=== PATIENT | female | born 1990 | race Caucasian/White ===

== ENCOUNTER 2016-12-18 19:29 | Emergency (ER) | payer OTHER ==
[~2016-12-18] VITALS: Ht 152.4 cm; Wt 74.8 kg
[2016-12-18] MEDS ORDERED: fentaNYL PF 100 MCG/2 ML VIAL IV PRN (20:30)
[2016-12-18] MEDS ORDERED: CONTRAST GIVEN MC PRN (21:00)
[2016-12-18] MEDS ORDERED: IOHEXOL 300 MG/ML 75 ML VIAL. IV ONE (21:00)
[2016-12-18 21:23] LABS: BILIRUBIN,URINE NEG (NEG); CLARITY,URINE CLEAR; COLOR,URINE YELLOW; GLUCOSE,URINE NEG (NEG); NITRITE,URINE NEG (NEG); UROBILINOGEN,URINE 0.2 mg/dL (0.2 mg/dL)
[2016-12-18 21:24] LABS: BACTERIA,URINE FEW /HPF (0-FEW); SQUAMOUS EPITHELIAL CELL,UR FEW /LPF
--- NOTE | 2016-12-18 21:51 | RAD ---
Exam is an: CT abdomen pelvis with IV contrast HISTORY: History of postop infection, similar to comparison: None available TECHNIQUE: Axial CT images of the abdomen pelvis were performed with IV contrast. Coronal and sagittal reformats are performed . Exposure: One or more of the following individualized dose reduction techniques were utilized for this examination: 1. Automated exposure control 2. Adjustment of the mA and/or kV according to patient size 3. Use of iterative reconstruction technique FINDINGS: The visualized bibasilar lungs grossly appears unremarkable. No evidence of free air identified in the abdomen. The visualized liver, spleen, adrenals grossly appears unremarkable. The gallbladder is mildly distended. Stomach is mildly distended. The visualized pancreas grossly appears unremarkable. The small bowel is nondilated. The appendix is not clearly identified however no evidence of inflammatory fat stranding identified in the right lower quadrant abdomen about the cecum. Feces and gas noted identified in the colon. The descending colon, sigmoid colon collapsed. Urinary bladder is mildly distended. Enlarged appearing thyroid uterus. There is fluid identified in the endometrium. There is faint heterogeneous enhancement of the uterus particularly in the posterior aspect. Small amount of free fluid identified in the pelvis. An obvious drainable focal fluid collection is not identified. The bilateral kidneys enhance symmetrically. The caliber of the aorta grossly appears unremarkable. No evidence of lytic bony destructive lesion. IMPRESSION: 1. Enlarged uterus could be status with mild inflammatory fat stranding around the uterus with some heterogeneous enhancement of the uterus could be postoperative changes or infection. There is fluid identified in the endometrium, nonspecific. Endometritis is not completely excluded. Correlate clinically. Electronically signed by: Ha Gill MD (12/18/2016 9:48 PM) [facility]
[2016-12-18 22:02] LABS: BASO # 0.1 x10^3/uL (0.0-0.2); BASO % 1 % (0-3); EOS # 0.1 x10^3/uL (0.0-0.7); EOS % 2 % (0-3); HEMATOCRIT 35.3 % (36.0-47.0); HEMOGLOBIN 11.9 g/dL (12.0-15.5); LYMPH # 3.4 x10^3/uL (1.0-4.8); LYMPH % 40 % (24-48); MEAN CORPUSCULAR HEMOGLOBIN 29 pg (25-35); MEAN CORPUSCULAR HGB CONC 34 g/dL (31-37); MEAN CORPUSCULAR VOLUME 87 fL (79-100); MONO # 0.5 x10^3/uL (0.0-1.1); MONO % 6 % (0-9); NEUT # 4.5 x10^3uL (1.8-7.7); NEUT % 52 % (31-73); PLATELET COUNT 244 x10^3/uL (140-400); RED BLOOD COUNT 4.06 x10^6/uL (3.50-5.40); RED CELL DISTRIBUTION WIDTH 14.3 % (11.5-14.5); WHITE BLOOD COUNT 8.6 x10^3/uL (4.0-11.0)
[2016-12-18 22:13] LABS: ALBUMIN 2.7 g/dL (3.4-5.0); ALBUMIN/GLOBULIN RATIO 0.8 (1.0-1.7); CALCIUM 8.3 mg/dL (8.5-10.1); CREATININE 0.8 mg/dL (0.6-1.0); GFR 86.7; TOTAL BILIRUBIN 0.2 mg/dL (0.2-1.0); TOTAL PROTEIN 5.9 g/dL (6.4-8.2)
[2016-12-18 23:31] VITALS: BP 130/55
--- NOTE | 2016-12-18 23:34 | PHYS DOC ---
Adult General Chief Complaint Chief Complaint: POST-OP PROBLEM HPI HPI Patient is a 26 year old female who presents with post operative infection. The patient states she is s/p by Dr. Albright at [facility] on 12/05. Yesterday she developed mild erythema around her incision. She was seen by her OB in the clinic yesterday & given prescription for keflex. She has taken 1 dose. Today she reports increased abdominal pain with spreading redness & warmth around the incision. She denies fevers/chills, nausea/vomiting, diarrhea, dysuria/hematuria, vaginal discharge. Occasional vaginal spotting. Review of Systems Review of Systems Constitutional: Denies fever or chills HENT: Denies nasal congestion or sore throat Respiratory: Denies cough or shortness of breath Cardiovascular: Denies chest pain GI: Reports abdominal pain, denies nausea, vomiting, bloody stools or diarrhea : Denies dysuria or hematuria Musculoskeletal: Denies back pain or joint pain Integument: Reports erythema around skin incision. Neurologic: Denies headache Current Medications Current Medications Current Medications Medications (Trade) Dose Ordered Sig/Yelitza Start Time Stop Time Status Last Admin Dose Admin Fentanyl Citrate (Fentanyl 2ml Vial) 50 mcg PRN Q15MIN PRN 12/18/16 20:30 12/19/16 20:29 Info (Do NOT chart on this entry -- for MONITORING) 1 each PRN DAILY PRN 12/18/16 21:00 12/20/16 20:59 Iohexol (Omnipaque 300 Mg/ml) 75 ml 1X ONCE 12/18/16 21:00 12/18/16 21:01 DC 12/18/16 21:15 75 ML Allergies Allergies Allergies Coded Allergies Type Severity Reaction Last Updated Verified No Known Drug Allergies 12/18/16 No Physical Exam Physical Exam Constitutional: Well developed, well nourished, no acute distress, non-toxic appearance. HENT: Normocephalic, atraumatic, bilateral external ears normal, oropharynx moist, nose normal. Eyes: conjunctiva normal, no discharge. Neck: supple, no stridor. Cardiovascular: RRR, no murmurs, no edema. Lungs & Thorax: LCTAB, no wheezing, no respiratory distress. Abdomen: low abdominal incision is intact, surrounding erythema & warmth approx 3 cm radius surrounding the incision with small amount of clear drainage, soft, moderate lower abdominal tenderness over the incision, no rebound/guarding, no masses or pulsatile masses, nondistended. Skin: Warm, dry, no erythema, no rash. Back: No CVA tenderness. Extremities: No tenderness, no edema. Neurologic: Alert and oriented X 3, no focal deficits noted. Psychologic: Affect normal, judgement normal, mood normal. Current Patient Data Lab Results Laboratory Tests Test 12/18/16 19:57 12/18/16 21:34 Urine Collection Type Unknown Urine Color Yellow Urine Clarity Clear Urine pH 7.0 Urine Specific [place] 1.025 Urine Protein Neg (NEG-TRACE) Urine Glucose (UA) Neg mg/dL (NEG) Urine Ketones (Stick) Neg mg/dL (NEG) Urine Blood Mod (NEG) Urine Nitrite Neg (NEG) Urine Bilirubin Neg (NEG) Urine Urobilinogen Dipstick 0.2 mg/dL (0.2 mg/dL) Urine Leukocyte Esterase Neg (NEG) Urine RBC 3-5 /HPF (0-2) Urine WBC 1-4 /HPF (0-4) Urine Squamous Epithelial Cells Few /LPF Urine Bacteria Few /HPF (0-FEW) Urine Mucus Mod /LPF White Blood Count 8.6 x10^3/uL (4.0-11.0) Red Blood Count 4.06 x10^6/uL (3.50-5.40) Hemoglobin 11.9 g/dL (12.0-15.5) L Hematocrit 35.3 % (36.0-47.0) L Mean Corpuscular Volume 87 fL (79-100) Mean Corpuscular Hemoglobin 29 pg (25-35) Mean Corpuscular Hemoglobin Concent 34 g/dL (31-37) Red Cell Distribution Width 14.3 % (11.5-14.5) Platelet Count 244 x10^3/uL (140-400) Neutrophils (%) (Auto) 52 % (31-73) Lymphocytes (%) (Auto) 40 % (24-48) Monocytes (%) (Auto) 6 % (0-9) Eosinophils (%) (Auto) 2 % (0-3) Basophils (%) (Auto) 1 % (0-3) Neutrophils # (Auto) 4.5 x10^3uL (1.8-7.7) Lymphocytes # (Auto) 3.4 x10^3/uL (1.0-4.8) Monocytes # (Auto) 0.5 x10^3/uL (0.0-1.1) Eosinophils # (Auto) 0.1 x10^3/uL (0.0-0.7) Basophils # (Auto) 0.1 x10^3/uL (0.0-0.2) Sodium Level 140 mmol/L (136-145) Potassium Level 4.0 mmol/L (3.5-5.1) Chloride Level 107 mmol/L (98-107) Carbon Dioxide Level 24 mmol/L (21-32) Anion Gap 9 (6-14) Blood Urea Nitrogen 15 mg/dL (7-20) Creatinine 0.8 mg/dL (0.6-1.0) Estimated GFR (Cockcroft-Gault) 86.7 BUN/Creatinine Ratio 19 (6-20) Glucose Level 83 mg/dL (70-99) Calcium Level 8.3 mg/dL (8.5-10.1) L Total Bilirubin 0.2 mg/dL (0.2-1.0) Aspartate Amino Transferase (AST) 15 U/L (15-37) Alanine Aminotransferase (ALT) 29 U/L (14-59) Alkaline Phosphatase 137 U/L (46-116) H Total Protein 5.9 g/dL (6.4-8.2) L Albumin 2.7 g/dL (3.4-5.0) L Albumin/Globulin Ratio 0.8 (1.0-1.7) L EKG EKG [] Radiology/Procedures Radiology/Procedures PROCEDURE: CT ABD PELV W/ IV CONTRST ONLY Exam is an: CT abdomen pelvis with IV contrast HISTORY: History of postop infection, similar to comparison: None available TECHNIQUE: Axial CT images of the abdomen pelvis were performed with IV contrast. Coronal and sagittal reformats are performed . Exposure: One or more of the following individualized dose reduction techniques were utilized for this examination: 1. Automated exposure control 2. Adjustment of the mA and/or kV according to patient size 3. Use of iterative reconstruction technique FINDINGS: The visualized bibasilar lungs grossly appears unremarkable. No evidence of free air identified in the abdomen. The visualized liver, spleen, adrenals grossly appears unremarkable. The gallbladder is mildly distended. Stomach is mildly distended. The visualized pancreas grossly appears unremarkable. The small bowel is nondilated. The appendix is not clearly identified however no evidence of inflammatory fat stranding identified in the right lower quadrant abdomen about the cecum. Feces and gas noted identified in the colon. The descending colon, sigmoid colon collapsed. Urinary bladder is mildly distended. Enlarged appearing thyroid uterus. There is fluid identified in the endometrium. There is faint heterogeneous enhancement of the uterus particularly in the posterior aspect. Small amount of free fluid identified in the pelvis. An obvious drainable focal fluid collection is not identified. The bilateral kidneys enhance symmetrically. The caliber of the aorta grossly appears unremarkable. No evidence of lytic bony destructive lesion. IMPRESSION: 1. Enlarged uterus could be status with mild inflammatory fat stranding around the uterus with some heterogeneous enhancement of the uterus could be postoperative changes or infection. There is fluid identified in the endometrium, nonspecific. Endometritis is not completely excluded. Correlate clinically. Electronically signed by: Ha Gill MD (12/18/2016 9:48 PM) [facility] DICTATED AND SIGNED BY: HA GILL MD DATE: 12/18/162138 [] Course & Med Decision Making Course & Med Decision Making Pertinent Labs and Imaging studies reviewed. (See chart for details) The patient presents with incisional infection after . She has taken a single dose of antibiotic prescribed by her OB. Today she is well appearing, afebrile. No leukocytosis. Due to abdominal tenderness obtained CT which does not show abscess, possible stranding around the uterus. Consulted with Dr. Harris who was preparation room worker for her OB, recommends okay to continue keflex & call the office in the morning for an appointment. The patient felt better after treatment here & was eager to go home to her other children, & she agreed with plan of care. Recommend rest, hydration, tylenol for pain, continue antibiotics , follow OB recommendations. Come back for high fever, severe pain, uncontrolled vomiting, spreading redness/warmth/swelling, any otherwise worsening condition. Discharged home in stable condition. [] Dragon Disclaimer Dragon Disclaimer This chart was dictated in whole or in part using Voice Recognition software in a busy, high-work load, and often noisy Emergency Department environment. It may contain unintended and wholly unrecognized errors or omissions. Departure Departure: Impression: Primary Impression: Cellulitis Additional Impression: Superficial incisional infection of surgical site Disposition: HOME, SELF-CARE Condition: STABLE Referrals: ROGER GARCIA DO, MPH (PCP) Patient Instructions: Cellulitis, [id number] Additional Instructions: You were seen in the emergency department today for wound infection after C- section. We recommended consultation with the OB doctor but you needed to leave and we haven't heard back from the physician. Please continue to take Keflex. Drink fluids to stay hydrated. Take pain medication as prescribed by your doctor. Please call your OB doctor tomorrow morning to be seen during the day tomorrow. Return immediately to the hospital for fever, severe pain, spreading redness/warmth/swelling, uncontrolled vomiting, any otherwise worsening condition. Problem Qualifiers Primary Impression: Cellulitis Site of cellulitis: other site Qualified Codes: L03.818 - Cellulitis of other sites CARLOS PRINGLE MD Dec 18, 2016 23:34
== END 2016-12-18 23:36 | disposition home or self-care (01) ==
LOC: ER 19:29
DX: O86.0 Infection of obstetric surgical wound (principal); L03.818 Cellulitis of other sites
CPT/HCPCS: 36415; 74177; 80053; 81001; 85025; 86850; 86900; 86901; 99285; Q9967